=== PATIENT | male | born 1935 | race Two or more races ===

== ENCOUNTER 2018-05-30 16:05 | Inpatient (IN) | payer MEDICARE, OTHER ==
[~2018-05-30] VITALS: Ht 157.5 cm; Wt 74.8 kg
[2018-05-30] MEDS ORDERED: DONE10TA44 PO (21:35)
[2018-05-30] MEDS ORDERED: PANT40TA4 PO (21:35)
[2018-05-30] MEDS ORDERED: OLAN5TAB3 PO (21:35)
[2018-05-30] MEDS ORDERED: FOLI1TAB16 PO (21:35)
[2018-05-30] MEDS ORDERED: METF-441 PO (21:35)
[2018-05-30] MEDS ORDERED: HYDR-4076 PO (21:35)
[2018-05-30] MEDS ORDERED: LAMO100T PO (21:35)
[2018-05-30] MEDS ORDERED: FINA5TAB11 PO (21:35)
[2018-05-30] MEDS ORDERED: TAMS0.4C34 PO (21:35)
[2018-05-30] MEDS ORDERED: MEMA10TA PO (21:35)
--- NOTE | 2018-05-30 22:00 | NUR ---
Admission Note: At 2100 admitted a 83 years old male from [facility] via Ambulance via gurney with 3 EMT personnel. Admitting diagnosis is acute on chronic metabolic encephalopathy. Patient is under the care of Dr. Carlton and [facility] group. Only German speaking, understands a few words in Nepali, Engineering Operator needed for communication. His condition was fair, his past medical hx: CVA, DM, HTN, Seizure, brain aneurysm. Resident has allergies to Codeine, benazepril, and gabapentin. Patient is Full code. AAO x1-2 with episodes of confusion and forgetfulness. No SOB or acute distress noted. VS: T: 98.8, HR:87, RR:18, O2 Sat:96% Room air, BP:156/66. No complain of pain or discomfort at this time. Dr. Carlton notified of admission. All needs attended and anticipated. Brief assessment done. Safety measures maintained. Bed On low position, bed alarm and brake on. Call light and all frequently used items within reach. Will continue to monitor.
[2018-05-30] MEDS ORDERED: Z GUARD REMEDY PASTE 57 GM TUBE TOP PRN ×2 (22:30→23:00)
[2018-05-30] MEDS ORDERED: ONDANSETRON 4 MG/2 ML VIAL IV PRN (22:30)
[2018-05-30] MEDS ORDERED: ACETAMINOPHEN 325 MG TABLET PO PRN (22:30)
[2018-05-30] MEDS ORDERED: MAGNESIUM HYDROXIDE 30 ML LIQUID UDC PO PRN (22:30)
[2018-05-30 22:32] VITALS: BP 156/66
--- NOTE | 2018-05-31 05:28 | NUR ---
End of the shift note Patient was stable throughout the shift and had a good sleep last night. Medication reconciliation done, called Dr. Almazan, he stated that he will do the medication at the morning but the PRN meds on the system. MRSA Screening done. All assessments and FIM done. Safety measures maintained. Hourly rounding done. All needs anticipated promptly. Fall precaution maintained. Bed in low position, brake and alarm on, side rails up x2. Call light and personal belongings within reach. Continue to monitor and will endorse to the day shift nurse accordingly.
[2018-05-31 06:39] VITALS: BP 161/69
[2018-05-31 07:10] LABS: BASOPHILS # (AUTO) 0.1 K/uL (0.0-8.0); BASOPHILS % (AUTO) 0.6 % (0.0-2.0); EOSINOPHILS # (AUTO) 0.2 K/uL (0.0-0.7); EOSINOPHILS % (AUTO) 1.4 % (0.0-7.0); HEMOGLOBIN 14.4 g/dL (12.5-16.3); LYMPHOCYTES # (AUTO) 1.6 K/uL (20.0-40.0); LYMPHOCYTES % (AUTO) 12.8 % (20.5-51.5); MEAN CORPUSCULAR HEMOGLOBIN 31.2 uug (23.8-33.4); MEAN CORPUSCULAR HGB CONC 33 g/dL (32.5-36.3); MEAN CORPUSCULAR VOLUME 93.3 fL (73.0-96.2); MONOCYTES % (AUTO) 7.8 % (0.0-11.0); NEUTROPHILS # (AUTO) 9.6 K/uL (1.8-8.9); NEUTROPHILS % (AUTO) 77.4 % (38.5-71.5); PLATELET COUNT (AUTO) 280 K/uL (152-348); RED BLOOD CELL COUNT(AUTO) 4.61 MIL/uL (4.06-5.63); WHITE BLOOD COUNT (AUTO) 12.5 K/uL (3.6-10.2)
[2018-05-31 07:25] LABS: CARBON DIOXIDE 28 mmol/L (21-32); CHLORIDE 103 mmol/L (98-107); CHOLESTEROL 141 mg/dL (<200); CREATININE 1.2 mg/dL (0.6-1.3); GLUCOSE 223 mg/dL (74-106); HDL CHOLESTEROL 43 mg/dL (40-60); MAGNESIUM 1.8 mg/dL (1.8-2.4); PHOSPHOROUS 4.3 mg/dL (2.5-4.9); POTASSIUM 4.4 mmol/L (3.5-5.1); TRIGLYCERIDES 155 MG/DL (30-150); UREA NITROGEN, BLOOD 12 mg/dL (7-18)
[2018-05-31] MEDS ORDERED: OLANZAPINE 5 MG TABLET PO SCH (10:30)
[2018-05-31] MEDS ORDERED: DEXTROSE 50% 50 ML DISP.SYRIN IV PRN (10:30)
[2018-05-31] MEDS: FOLIC ACID 1 MG TABLET PO SCH (11:05)
[2018-05-31] MEDS: MEMANTINE HCL 10 MG TABLET PO SCH ×2 (11:06→16:57)
[2018-05-31] MEDS: hydrALAZINE HCL 25 MG TABLET PO SCH ×2 (11:22→17:00)
[2018-05-31] MEDS: TAMSULOSIN HCL 0.4 MG CAP.SR.24H PO SCH (11:54)
[2018-05-31] MEDS: BLOOD SUGAR DIAGNOSTIC 1 EACH STRIP VI SCH ×3 (12:12→21:07)
[2018-05-31] MEDS: INSULIN REGULAR, HUMAN 300 UNIT/3 ML VIAL SQ PRN ×2 (12:23→17:12)
[2018-05-31] MEDS ORDERED: DULO60CA45 PO (14:05)
[2018-05-31] MEDS ORDERED: RIVA3CAP5 PO (14:06)
[2018-05-31] MEDS: LORAZEPAM 0.5 MG TABLET PO PRN ×2 (14:08→22:28)
[2018-05-31 16:00] VITALS: BP 137/80
[2018-05-31] MEDS ORDERED: OLANZAPINE 2.5 MG TABLET PO PRN (17:45)
--- NOTE | 2018-05-31 19:20 | NUR ---
Awake when received. Family and sitter at bedside. Confused and disoriented, Syriac speaking only. Able to follow simple command at times. No agitation, restlessness and anxiety noted. safety measure and fall precaution maintained. Continue care as planned.
--- NOTE | 2018-05-31 19:41 | NUR ---
SBAR report received this morning, board updated. Pt assessed, no acute distress, SOB or pain noted. Pt AAOx1-2, frequently forgetful and confused. Spoke with all three of Pt's children, reporting hx of Alzheimer's and dementia. Pt continued throughout the shift to be impulsive and spontaneous. Pt son, Cam brought belongings including left ear hearing aid, belongings list updated. Pt escorted to walk the unity frequently. Pt seen by MD, new order for Ativan received, administered, with minimal effectiveness. Pt compliant with most routine medication administration and therapy evals as offered. Bed in locked and lowest position, side rails up, bed alarm on and fall precautions maintained. All comfort and safety needs attended to throughout this shift. VSS. Call light placed within reach. Will continue to monitor and endorse to oncoming shift coordinator nurse.
[2018-05-31 20:00] VITALS: BP 146/61
[2018-05-31] MEDS: DULOXETINE 60 MG CAPSULE.DR PO SCH (20:46)
[2018-05-31] MEDS: LAMOTRIGINE 100 MG TABLET PO SCH (20:47)
[2018-05-31] MEDS: OLANZAPINE 5 MG TABLET PO SCH (21:00)
[2018-05-31] MEDS: ZOLPIDEM 5 MG TABLET PO PRN (21:00)
--- NOTE | 2018-05-31 21:00 | NUR ---
Zyprexa 5mg po not given at this time. Was given in AM.
[2018-05-31] MEDS: INSULIN REGULAR, HUMAN 300 UNITS/3 ML VIAL SQ PRN (21:10)
[2018-05-31] MEDS: RIVASTIGMINE TARTRATE 3 MG CAPSULE PO SCH (21:15)
--- NOTE | 2018-05-31 22:31 | NUR ---
Agitated, restless, uncooperative, always trying to get out of bed, pulled down the curtain, Ativan 0.5 mg i tab given as needed and ordered. Will monitor. Sitter remain at bedside. Safety measure and fall precaution maintained.
--- NOTE | 2018-06-01 00:28 | NUR ---
Sleeping soundly at this time.
[2018-06-01] MEDS: BLOOD SUGAR DIAGNOSTIC 1 EACH STRIP VI SCH ×4 (06:29→20:57)
[2018-06-01] MEDS: PANTOPRAZOLE SODIUM 40 MG TABLET.DR PO SCH (06:31)
--- NOTE | 2018-06-01 06:48 | NUR ---
Shift End Report: Slept fairly. Confused, disoriented, uncooperative, always trying to get out of bed. Partial bed bath given after bladder incontinence. Skin remain intact. No complaint presented. No fall/injury. No s/s of hypo/hyperglycemia. All needs attended and met. Continue current rehab plan of care.
[2018-06-01 08:01] LABS: BASOPHILS # (AUTO) 0.1 K/uL (0.0-8.0); BASOPHILS % (AUTO) 0.5 % (0.0-2.0); EOSINOPHILS # (AUTO) 0.1 K/uL (0.0-0.7); EOSINOPHILS % (AUTO) 0.9 % (0.0-7.0); HEMOGLOBIN 12.8 g/dL (12.5-16.3); LYMPHOCYTES # (AUTO) 1.6 K/uL (20.0-40.0); LYMPHOCYTES % (AUTO) 14.5 % (20.5-51.5); MEAN CORPUSCULAR HEMOGLOBIN 30.7 uug (23.8-33.4); MEAN CORPUSCULAR HGB CONC 34 g/dL (32.5-36.3); MEAN CORPUSCULAR VOLUME 90.7 fL (73.0-96.2); MONOCYTES # (AUTO) 0.8 K/uL (2.0-10.0); MONOCYTES % (AUTO) 7.5 % (0.0-11.0); NEUTROPHILS # (AUTO) 8.4 K/uL (1.8-8.9); NEUTROPHILS % (AUTO) 76.6 % (38.5-71.5); PLATELET COUNT (AUTO) 273 K/uL (152-348); RED BLOOD CELL COUNT(AUTO) 4.19 MIL/uL (4.06-5.63)
[2018-06-01 08:15] LABS: CARBON DIOXIDE 26 mmol/L (21-32); CHLORIDE 105 mmol/L (98-107); CREATININE 1.1 mg/dL (0.6-1.3); GLUCOSE 194 mg/dL (74-106); POTASSIUM 3.9 mmol/L (3.5-5.1); UREA NITROGEN, BLOOD 20 mg/dL (7-18)
[2018-06-01 08:22] LABS: THYROID STIMULATING HORMONE 1.301 mIU/mL (0.358-3.740)
[2018-06-01] MEDS ORDERED: DONEPEZIL 10 MG TABLET PO SCH (09:00)
[2018-06-01] MEDS: hydrALAZINE HCL 25 MG TABLET PO SCH ×3 (09:00→18:55)
[2018-06-01] MEDS: INSULIN REGULAR, HUMAN 300 UNIT/3 ML VIAL SQ PRN ×2 (09:51→12:44)
[2018-06-01] MEDS ORDERED: IV NS 1000 ML 1,000 ML IV ONE (11:30)
[2018-06-01] MEDS: RIVASTIGMINE TARTRATE 3 MG CAPSULE PO SCH ×2 (12:26→20:57)
[2018-06-01] MEDS: MEMANTINE HCL 10 MG TABLET PO SCH ×2 (12:27→18:05)
[2018-06-01] MEDS: TAMSULOSIN HCL 0.4 MG CAP.SR.24H PO SCH (12:27)
[2018-06-01] MEDS: FOLIC ACID 1 MG TABLET PO SCH (12:27)
[2018-06-01] MEDS: FINASTERIDE 5 MG TABLET PO SCH (12:27)
[2018-06-01 14:57] VITALS: BP 135/66
[2018-06-01 16:04] LABS: *BILIRUBIN,URIN NEGATIVE (NEGATIVE); *BLOOD, URINE NEGATIVE (NEGATIVE); *CLARITY,URINE CLEAR (CLEAR); *COLOR,URINE YELLOW (YELLOW); *KETONES,URINE 1+ (NEGATIVE); *PROTEIN,URINE 1+ (NEGATIVE); *UROBILINOGEN,URINE 0.2 E.U./dl (NORMAL); LEUKOCYTE ESTERASE ,URINE NEGATIVE (NEGATIVE); NITRITE, URINE NEGATIVE (NEGATIVE); UGLUCOSE 1+ (NEGATIVE)
[2018-06-01 17:00] LABS: MUCUS,URINE MODERATE /LPF (0-FEW); RBC,URINE 0-3 /HPF (0-3); SQUAMOUS EPITHELIAL CELL,UR FEW /HPF (NONE SEEN); WBC,URINE 0-3 /HPF (0-3)
[2018-06-01 19:31] VITALS: BP 138/59
--- NOTE | 2018-06-01 19:41 | NUR ---
SBAR report received, board updated, Pt assessed, endorsed from night time babysitter of minimal sleep last night and medications to assist evident. Pt compliant with most routinely scheduled medications and therapies as offered. Family visited in the afternoon, pt assisted to eat lunch in wheelchair with daughter and . Urine sample able to be collected and sent to lab. Hydralazine held, for bp of 99/55, administered upon re-evaluation of BP 151/70 following initiation of IV fluids. 20 ray IV inserted to left wrist per MD order for hydration of NA 0.9% 75ml/hr. Bed in locked and lowest position with side rails upx2. 1:1 sitter remained at bedside for safety. All comfort and safety needs attended to promptly this shift. Call light within reach. Will continue to monitor and endorse to oncoming night time babysitter.
[2018-06-01] MEDS: DULOXETINE 60 MG CAPSULE.DR PO SCH (20:57)
[2018-06-01] MEDS: LAMOTRIGINE 100 MG TABLET PO SCH (20:57)
[2018-06-01] MEDS: OLANZAPINE 5 MG TABLET PO SCH (20:57)
--- NOTE | 2018-06-02 05:38 | NUR ---
Pt slept comfortably t/o the night. Aroused easily when alerted by name. Somali speaking. No acute distress noted. No c/o pain or discomfort, no facial cues for pain noted. 1:1 sitter at bedside. IV site on left forearm gauge 20 infusing IV NS 75 mL/hr for hydration. Safety measures maintained. Will continue to monitor.
[2018-06-02 06:38] VITALS: BP 111/63
[2018-06-02] MEDS: BLOOD SUGAR DIAGNOSTIC 1 EACH STRIP VI SCH ×4 (06:47→21:27)
[2018-06-02 07:29] LABS: BASOPHILS # (AUTO) 0.1 K/uL (0.0-8.0); BASOPHILS % (AUTO) 0.6 % (0.0-2.0); EOSINOPHILS # (AUTO) 0.5 K/uL (0.0-0.7); EOSINOPHILS % (AUTO) 4.8 % (0.0-7.0); HEMATOCRIT 39.1 % (36.7-47.1); HEMOGLOBIN 13.2 g/dL (12.5-16.3); LYMPHOCYTES # (AUTO) 2.2 K/uL (20.0-40.0); LYMPHOCYTES % (AUTO) 23.8 % (20.5-51.5); MEAN CORPUSCULAR HEMOGLOBIN 31.2 uug (23.8-33.4); MEAN CORPUSCULAR HGB CONC 34 g/dL (32.5-36.3); MEAN CORPUSCULAR VOLUME 92.2 fL (73.0-96.2); MONOCYTES # (AUTO) 0.9 K/uL (2.0-10.0); MONOCYTES % (AUTO) 9.5 % (0.0-11.0); NEUTROPHILS # (AUTO) 5.7 K/uL (1.8-8.9); NEUTROPHILS % (AUTO) 61.3 % (38.5-71.5); PLATELET COUNT (AUTO) 259 K/uL (152-348); RED BLOOD CELL COUNT(AUTO) 4.24 MIL/uL (4.06-5.63); WHITE BLOOD COUNT (AUTO) 9.3 K/uL (3.6-10.2)
[2018-06-02] MEDS: hydrALAZINE HCL 25 MG TABLET PO SCH ×2 (08:49→16:26)
[2018-06-02] MEDS: TAMSULOSIN HCL 0.4 MG CAP.SR.24H PO SCH (08:49)
[2018-06-02] MEDS: MEMANTINE HCL 10 MG TABLET PO SCH ×2 (08:50→16:26)
[2018-06-02] MEDS: FOLIC ACID 1 MG TABLET PO SCH (08:50)
[2018-06-02] MEDS: FINASTERIDE 5 MG TABLET PO SCH (08:50)
[2018-06-02] MEDS: RIVASTIGMINE TARTRATE 3 MG CAPSULE PO SCH ×2 (08:50→21:29)
[2018-06-02] MEDS: INSULIN REGULAR, HUMAN 300 UNIT/3 ML VIAL SQ PRN ×2 (08:56→11:51)
[2018-06-02 09:30] VITALS: BP 145/62
--- NOTE | 2018-06-02 12:50 | NUR ---
Patient continue therapy for ambulation and ADL activity. tolerated well. Continue monitoring blood sugar with sliding scale protocol. no signs of hypo/hyperglycemia. no complaint of pain/discomfort. will continue monitor
--- NOTE | 2018-06-02 13:22 | NUR ---
INTERDISCIPLINARY TEAM CONFERENCE
[2018-06-02 16:00] VITALS: BP 129/61
[2018-06-02 21:06] VITALS: BP 129/57
[2018-06-02] MEDS: DULOXETINE 60 MG CAPSULE.DR PO SCH (21:29)
[2018-06-02] MEDS: OLANZAPINE 5 MG TABLET PO SCH (21:29)
[2018-06-02] MEDS: LAMOTRIGINE 100 MG TABLET PO SCH (21:29)
[2018-06-02] MEDS: INSULIN REGULAR, HUMAN 300 UNITS/3 ML VIAL SQ PRN (21:32)
--- NOTE | 2018-06-02 21:54 | NUR ---
Received pt sleeping comfortably in bed. Aroused easily when alerted by name. AAO x1. Thai speaking. No acute distress noted. No c/o pain or discomfort, no facial cues noted for pain. All due meds and insulin coverage given as ordered. Pt has 2:1 sitter for safety. Safety measures maintained. Call light and personal belongings within reach. Will continue to monitor.
[2018-06-03 05:37] VITALS: BP 133/62
[2018-06-03] MEDS: PANTOPRAZOLE SODIUM 40 MG TABLET.DR PO SCH (06:35)
[2018-06-03] MEDS: BLOOD SUGAR DIAGNOSTIC 1 EACH STRIP VI SCH ×4 (06:43→20:35)
[2018-06-03] MEDS: LORAZEPAM 0.5 MG TABLET PO PRN (11:39)
[2018-06-03] MEDS: FOLIC ACID 1 MG TABLET PO SCH (11:39)
[2018-06-03] MEDS: hydrALAZINE HCL 25 MG TABLET PO SCH ×2 (11:39→16:53)
[2018-06-03] MEDS: TAMSULOSIN HCL 0.4 MG CAP.SR.24H PO SCH (11:40)
[2018-06-03] MEDS: FINASTERIDE 5 MG TABLET PO SCH (11:40)
[2018-06-03] MEDS: MEMANTINE HCL 10 MG TABLET PO SCH ×2 (11:42→16:52)
[2018-06-03] MEDS: RIVASTIGMINE TARTRATE 3 MG CAPSULE PO SCH ×2 (11:43→20:22)
[2018-06-03] MEDS: INSULIN REGULAR, HUMAN 300 UNIT/3 ML VIAL SQ PRN (12:09)
[2018-06-03 15:31] VITALS: BP 171/77
[2018-06-03 15:48] VITALS: BP 159/62
[2018-06-03] MEDS: DULOXETINE 60 MG CAPSULE.DR PO SCH (20:17)
[2018-06-03] MEDS: LAMOTRIGINE 100 MG TABLET PO SCH (20:19)
[2018-06-03] MEDS: OLANZAPINE 5 MG TABLET PO SCH (20:29)
[2018-06-03] MEDS: INSULIN REGULAR, HUMAN 300 UNITS/3 ML VIAL SQ PRN (20:36)
--- NOTE | 2018-06-03 20:45 | NUR ---
NSG:Received patient laying in bed,awake a/o x2, speaks Slovak. Family and sitter at bedside. patient is Confused and disoriented, Able to follow simple command at times. no c/o pain or discomfort at this time.No agitation, restlessness and anxiety noted.due medications given. safety measure and fall precaution maintained. Continue care as planned.
[2018-06-03 21:19] VITALS: BP 140/47
[2018-06-04 05:30] VITALS: BP 125/54
--- NOTE | 2018-06-04 05:59 | NUR ---
NSG: Pt slept comfortably through the night. A/O x1 to name only. Lao speaking. No acute distress noted. No c/o pain or discomfort, no facial cues for pain noted. sitter at bedside. IV site on left forearm gauge 20 patent. Safety measures maintained.call light w/in reach. Will continue to monitor.
[2018-06-04] MEDS: BLOOD SUGAR DIAGNOSTIC 1 EACH STRIP VI SCH ×4 (06:34→21:14)
[2018-06-04 07:30] VITALS: BP 121/76
[2018-06-04] MEDS: TAMSULOSIN HCL 0.4 MG CAP.SR.24H PO SCH (08:46)
[2018-06-04] MEDS: FINASTERIDE 5 MG TABLET PO SCH (08:46)
[2018-06-04] MEDS: RIVASTIGMINE TARTRATE 3 MG CAPSULE PO SCH ×2 (08:46→21:08)
[2018-06-04] MEDS: hydrALAZINE HCL 25 MG TABLET PO SCH ×2 (08:46→16:38)
[2018-06-04] MEDS: MEMANTINE HCL 10 MG TABLET PO SCH ×2 (08:47→16:37)
[2018-06-04] MEDS: FOLIC ACID 1 MG TABLET PO SCH (08:47)
--- NOTE | 2018-06-04 10:01 | NUR ---
Patient received in bed. Response to touch and auditory stimulation. AAO x4. Able to make needs known. No sign of acute distress or SOB was noted. On room air. No Complain of pain at this time. Patient assessed. Safety measures maintained. All due medications given- tolerated well. Bed in low position, brake and alarm on, side rails up x2. Call light and personal belongings within reach. Will continue to monitor. Addendum: 06/04/18 at 1247 by GRAY IRVING RN Alert and oriented x 1. Filipino speaking.
[2018-06-04] MEDS: INSULIN REGULAR, HUMAN 300 UNIT/3 ML VIAL SQ PRN ×2 (11:34→16:35)
[2018-06-04 15:40] VITALS: BP 120/66
--- NOTE | 2018-06-04 17:42 | NUR ---
NSG: IV access D/C from right hand. Patient tolerated procedure well. No pain noted. Will continue to monitor.
--- NOTE | 2018-06-04 18:46 | NUR ---
End of Shift Note: Patient asleep during most of shift. PT performed in morning. Family visited at dinner time. Patient stated to be, "anxious to go home". Family translated interaction. Insulin coverage given before lunch and breakfast. All other scheduled medications given and taken by pt. Safety measures and precautions in place. No new skin condition noted. All pt. needs attended and met. Asking about discharge date. Call light and all frequently used items within pt. reach. Will endorse to oncoming shift.
[2018-06-04 20:38] VITALS: BP 150/64
[2018-06-04] MEDS: DULOXETINE 60 MG CAPSULE.DR PO SCH (21:08)
[2018-06-04] MEDS: OLANZAPINE 5 MG TABLET PO SCH (21:08)
[2018-06-04] MEDS: LAMOTRIGINE 100 MG TABLET PO SCH (21:08)
--- NOTE | 2018-06-04 23:25 | NUR ---
Received pt in bed, appearing to be asleep but easily arousable to verbal stimuli and light touch. AAO x 2. Verbally responsive and able to communicate basic needs. Denies pain or discomfort. All due medications given per MD order, tolerated well. Sugar 120, no coverage given per sliding scale. 1:1 sitter at bedside for safety. All safety measures and fall precautions maintained. Call light and all personal belongings within reach. Will continue to monitor.
[2018-06-05 04:55] VITALS: BP 146/78
[2018-06-05] MEDS: PANTOPRAZOLE SODIUM 40 MG TABLET.DR PO SCH (06:51)
[2018-06-05] MEDS: BLOOD SUGAR DIAGNOSTIC 1 EACH STRIP VI SCH ×4 (06:52→20:42)
[2018-06-05] MEDS: TAMSULOSIN HCL 0.4 MG CAP.SR.24H PO SCH (08:18)
[2018-06-05] MEDS: FINASTERIDE 5 MG TABLET PO SCH (08:18)
[2018-06-05] MEDS: MEMANTINE HCL 10 MG TABLET PO SCH ×2 (08:18→17:09)
[2018-06-05] MEDS: hydrALAZINE HCL 25 MG TABLET PO SCH ×2 (08:18→17:10)
[2018-06-05] MEDS: FOLIC ACID 1 MG TABLET PO SCH (08:18)
[2018-06-05] MEDS: RIVASTIGMINE TARTRATE 3 MG CAPSULE PO SCH ×2 (08:19→20:38)
[2018-06-05] MEDS: INSULIN REGULAR, HUMAN 300 UNIT/3 ML VIAL SQ PRN ×3 (08:24→17:08)
[2018-06-05 08:34] VITALS: BP 145/62
--- NOTE | 2018-06-05 09:30 | NUR ---
Received pt. lying in bed with eyes closed. Pt. A/OX1 to self only, responds to verbal and tactile stimuli. No s/sx of hypo/hyperglycemia, last BS: 169 covered with Humalin R of 3 Units. Denies pain or discomfort. No s/sx of increase work of breathing. All due medications administered as ordered and tolerated well. Skin remain intact with scattered skin discoloration 2/2 normal aging process. On 1:1 sitter for safety and fall precautionary as pt. has tendency to get out of bed without assistance. Pt. hard of hearing applied hearing aid accordingly. Call light and all frequently used items within pt. reach. Will continue to monitor throughout this shift.
[2018-06-05 16:00] VITALS: BP 122/67
--- NOTE | 2018-06-05 18:33 | NUR ---
EOS NOTE: No significant change during this shift. All scheduled medications given and tolerated well. No new skin condition noted. 1630 BS: 96, no coverage. No s/sx of hypo/hyperglycemia. No seizure activity noted. Family visited pt. today. All pt. needs attended and met. Safety measure and precaution in placed, on 1:1 sitter . Call light and all frequently used items within pt. reach. Will endorse to oncoming shift accordingly.
[2018-06-05 19:31] VITALS: BP 131/54
[2018-06-05] MEDS: OLANZAPINE 5 MG TABLET PO SCH (20:37)
[2018-06-05] MEDS: DULOXETINE 60 MG CAPSULE.DR PO SCH (20:37)
[2018-06-05] MEDS: LAMOTRIGINE 100 MG TABLET PO SCH (20:38)
[2018-06-05] MEDS: INSULIN REGULAR, HUMAN 300 UNITS/3 ML VIAL SQ PRN (20:45)
[2018-06-06 04:45] VITALS: BP 139/71
[2018-06-06] MEDS: BLOOD SUGAR DIAGNOSTIC 1 EACH STRIP VI SCH ×4 (07:00→21:00)
[2018-06-06 07:30] VITALS: BP 142/77
[2018-06-06] MEDS: FOLIC ACID 1 MG TABLET PO SCH (09:09)
[2018-06-06] MEDS: hydrALAZINE HCL 25 MG TABLET PO SCH ×2 (09:10→17:09)
[2018-06-06] MEDS: TAMSULOSIN HCL 0.4 MG CAP.SR.24H PO SCH (09:10)
[2018-06-06] MEDS: MEMANTINE HCL 10 MG TABLET PO SCH ×2 (09:10→17:09)
[2018-06-06] MEDS: FINASTERIDE 5 MG TABLET PO SCH (09:10)
[2018-06-06] MEDS: RIVASTIGMINE TARTRATE 3 MG CAPSULE PO SCH ×2 (09:11→21:00)
[2018-06-06] MEDS: INSULIN REGULAR, HUMAN 300 UNIT/3 ML VIAL SQ PRN ×3 (09:15→17:17)
--- NOTE | 2018-06-06 13:46 | NUR ---
Notified Astrid Paige STRATEGIC ANALYST regarding blood sugar of 346 and current diet order, per STRATEGIC ANALYST change diet to soft consistent carb 60gm.
[2018-06-06 15:48] VITALS: BP 128/69
[2018-06-06 16:00] VITALS: BP 129/65
[2018-06-06 20:20] VITALS: BP 138/63
[2018-06-06] MEDS: LAMOTRIGINE 100 MG TABLET PO SCH (21:00)
[2018-06-06] MEDS: DULOXETINE 60 MG CAPSULE.DR PO SCH (21:00)
[2018-06-06] MEDS: OLANZAPINE 5 MG TABLET PO SCH (21:00)
[2018-06-07 05:33] VITALS: BP 137/71
--- NOTE | 2018-06-07 06:00 | NUR ---
AGREED TO TAKE THIS MORNINGS MEDS, WITHOUT ANY FUSS, BS 140...ANXIOUS TO GO HOME.
[2018-06-07] MEDS: PANTOPRAZOLE SODIUM 40 MG TABLET.DR PO SCH (06:51)
[2018-06-07] MEDS: BLOOD SUGAR DIAGNOSTIC 1 EACH STRIP VI SCH ×4 (07:04→20:52)
[2018-06-07 08:10] VITALS: BP 137/72
[2018-06-07] MEDS: FOLIC ACID 1 MG TABLET PO SCH (08:27)
[2018-06-07] MEDS: MEMANTINE HCL 10 MG TABLET PO SCH ×2 (08:27→16:22)
[2018-06-07] MEDS: FINASTERIDE 5 MG TABLET PO SCH (08:27)
[2018-06-07] MEDS: RIVASTIGMINE TARTRATE 3 MG CAPSULE PO SCH ×2 (08:28→20:51)
[2018-06-07] MEDS: hydrALAZINE HCL 25 MG TABLET PO SCH ×2 (08:28→16:23)
[2018-06-07] MEDS: TAMSULOSIN HCL 0.4 MG CAP.SR.24H PO SCH (08:28)
[2018-06-07] MEDS: INSULIN REGULAR, HUMAN 300 UNIT/3 ML VIAL SQ PRN ×3 (08:30→16:21)
--- NOTE | 2018-06-07 11:09 | NUR ---
Received pt. lying in bed comfortable. On 1:1 sitter for safety and monitoring. Pt. A/OX1-2 responds to verbal and tactile stimuli. No s/sx of hypo/hyperglycemia, last BS: 140 covered with Humalin R of 2 Units. Denies pain or discomfort. No s/sx of increase work of breathing. All due medications administered as ordered and tolerated well. No new skin condition. Pt. requesting to discharge early, provided pt. teaching and referred to case management assistant accordingly. Call light and all frequently used items within pt. reach. Will continue to monitor throughout this shift.
[2018-06-07 16:38] VITALS: BP 133/60
--- NOTE | 2018-06-07 18:43 | NUR ---
EOS NOTE: No significant change during this shift. All scheduled medications given and tolerated well. No new skin condition noted. 1630 BS: 121, no coverage. No s/sx of hypo/hyperglycemia. No seizure activity noted. All pt. needs attended and met. On 1:1 sitter for safety. Call light and all frequently used items within pt. reach. Will endorse to oncoming shift accordingly.
[2018-06-07 20:09] VITALS: BP 133/64
[2018-06-07] MEDS: DULOXETINE 60 MG CAPSULE.DR PO SCH (20:51)
[2018-06-07] MEDS: OLANZAPINE 5 MG TABLET PO SCH (20:51)
[2018-06-07] MEDS: LAMOTRIGINE 100 MG TABLET PO SCH (20:51)
--- NOTE | 2018-06-07 23:17 | NUR ---
Received pt in bed, appearing to be asleep but easily arousable to verbal stimuli and light touch. No acute distress noted. Verbally responsive and able to communicate needs. Sugar noted to be 117, no coverage provided per sliding scale as ordered by MD. All due medications given, tolerated well. Assisted to the bathroom x 1 minimal assistance. All safety measures and fall precautions maintained. Call light and all personal belongings within reach. 1:1 sitter at bedside for safety. Will continue to monitor.
[2018-06-08 05:01] VITALS: BP 125/62
[2018-06-08] MEDS: BLOOD SUGAR DIAGNOSTIC 1 EACH STRIP VI SCH ×4 (06:34→20:52)
[2018-06-08 07:30] VITALS: BP_SYST 144; BP_SYST 171; BP_DIAS 64; BP_DIAS 69
[2018-06-08] MEDS: MEMANTINE HCL 10 MG TABLET PO SCH ×2 (08:41→17:21)
[2018-06-08] MEDS: FOLIC ACID 1 MG TABLET PO SCH (08:42)
[2018-06-08] MEDS: RIVASTIGMINE TARTRATE 3 MG CAPSULE PO SCH ×2 (08:42→20:46)
[2018-06-08] MEDS: TAMSULOSIN HCL 0.4 MG CAP.SR.24H PO SCH (08:43)
[2018-06-08] MEDS: hydrALAZINE HCL 25 MG TABLET PO SCH ×2 (08:43→17:22)
[2018-06-08] MEDS: FINASTERIDE 5 MG TABLET PO SCH (08:43)
[2018-06-08] MEDS: INSULIN REGULAR, HUMAN 300 UNIT/3 ML VIAL SQ PRN ×3 (08:50→16:48)
--- NOTE | 2018-06-08 09:13 | NUR ---
Patient received in bed, resting. Alert and oriented x 1/2. Czech speaking. Responds to verbal and tactile stimuli. No signs of hypo/hyperglycemia. Last BS 169 with 3 units of Humalin coverage given. Denies pain of discomfort at this time. All due medications given-tolerated well. No new skin conditions at this time. Patient currently with physical therapy. Will continue to monitor.
[2018-06-08 16:38] VITALS: BP 140/62
--- NOTE | 2018-06-08 18:56 | NUR ---
End of shift note: No significant changes during shift. 1130 BS: 319. 12 units of insulin given. 1630 BS: 154. 2 units given. No s/sx of hypo/hyperglycemia noted. No seizure activity. All due medications given-tolerated will. No PRNs given at this time/ On 1:1 sitter for safety. Call light and all frequently used items with reach. Will endorse to oncoming shift accordingly.
[2018-06-08 20:10] VITALS: BP 137/52
[2018-06-08] MEDS: DULOXETINE 60 MG CAPSULE.DR PO SCH (20:46)
[2018-06-08] MEDS: OLANZAPINE 5 MG TABLET PO SCH (20:47)
[2018-06-08] MEDS: LAMOTRIGINE 100 MG TABLET PO SCH (20:49)
[2018-06-08] MEDS: INSULIN REGULAR, HUMAN 300 UNITS/3 ML VIAL SQ PRN (20:54)
[2018-06-09 04:00] VITALS: BP 142/71
--- NOTE | 2018-06-09 04:55 | NUR ---
slept well throughout the night. no acute distress noted incontinent of bowel and bladder. VSS. @ 0500 patient tried to get up and wants to go home and see his saying she is sick, explained to patient and reoriented him that he is here in the hospital. Will monitor patient. Patient confused but no signs of agitation or combativeness. 1:1 sitter at bedside. safety precautions maintained.
[2018-06-09] MEDS: PANTOPRAZOLE SODIUM 40 MG TABLET.DR PO SCH (06:14)
[2018-06-09] MEDS: BLOOD SUGAR DIAGNOSTIC 1 EACH STRIP VI SCH ×4 (06:32→20:56)
--- NOTE | 2018-06-09 08:00 | NUR ---
Up with physical therapy. Awake, alert x1. Re-oriented as necessary. Patient may be confused and impulsive at times. With 1:1 sitter. Not in any form of distress. No dizziness, SOB or chest pains noted.
[2018-06-09] MEDS: FOLIC ACID 1 MG TABLET PO SCH (08:41)
[2018-06-09] MEDS: FINASTERIDE 5 MG TABLET PO SCH (08:41)
[2018-06-09] MEDS: TAMSULOSIN HCL 0.4 MG CAP.SR.24H PO SCH (08:41)
[2018-06-09] MEDS: hydrALAZINE HCL 25 MG TABLET PO SCH ×2 (08:41→17:17)
[2018-06-09] MEDS: MEMANTINE HCL 10 MG TABLET PO SCH ×2 (08:42→17:17)
[2018-06-09] MEDS: RIVASTIGMINE TARTRATE 3 MG CAPSULE PO SCH ×2 (08:42→20:51)
[2018-06-09] MEDS: INSULIN REGULAR, HUMAN 300 UNIT/3 ML VIAL SQ PRN ×3 (08:44→16:54)
[2018-06-09 09:38] VITALS: BP 166/69
--- NOTE | 2018-06-09 13:23 | NUR ---
INTERDISCIPLINARY TEAM CONFERENCE
[2018-06-09 16:00] VITALS: BP 165/72
--- NOTE | 2018-06-09 19:15 | NUR ---
Awake during initial rounds, Trying to get out of bed. Sitter at bedside. Not in distress, quite anxious, uncooperetaive with care. Safety measure and fall precaution maintained. Continue care as planned.
[2018-06-09 19:27] VITALS: BP 160/57
[2018-06-09] MEDS: DULOXETINE 60 MG CAPSULE.DR PO SCH (20:51)
[2018-06-09] MEDS: LAMOTRIGINE 100 MG TABLET PO SCH (20:51)
[2018-06-09] MEDS: OLANZAPINE 5 MG TABLET PO SCH (20:51)
[2018-06-09] MEDS: INSULIN REGULAR, HUMAN 300 UNITS/3 ML VIAL SQ PRN (21:00)
[2018-06-10] MEDS: ZOLPIDEM 5 MG TABLET PO PRN (01:37)
[2018-06-10] MEDS: BLOOD SUGAR DIAGNOSTIC 1 EACH STRIP VI SCH ×4 (06:55→21:00)
--- NOTE | 2018-06-10 07:27 | NUR ---
Shift End Report: Kind of restless, uncooperative the rest of the night. Sleeping meds effective. Slept soundly after midnight. No complaint presented. No fall/injury. No s/s of hypo/hyperglycemia. All needs attended and met. Remain on 1:1. No significant event reported all night. Continue current rehab plan of care.
[2018-06-10 08:29] VITALS: BP 154/78
[2018-06-10] MEDS: RIVASTIGMINE TARTRATE 3 MG CAPSULE PO SCH ×2 (09:49→20:55)
[2018-06-10] MEDS: FOLIC ACID 1 MG TABLET PO SCH (09:53)
[2018-06-10] MEDS: TAMSULOSIN HCL 0.4 MG CAP.SR.24H PO SCH (09:54)
[2018-06-10] MEDS: hydrALAZINE HCL 25 MG TABLET PO SCH ×2 (09:55→17:08)
[2018-06-10] MEDS: FINASTERIDE 5 MG TABLET PO SCH (09:55)
[2018-06-10] MEDS: MEMANTINE HCL 10 MG TABLET PO SCH ×2 (12:09→17:08)
[2018-06-10] MEDS: INSULIN REGULAR, HUMAN 300 UNIT/3 ML VIAL SQ PRN ×2 (12:24→17:06)
[2018-06-10 16:22] VITALS: BP 138/68
[2018-06-10 20:10] VITALS: BP 130/58
[2018-06-10] MEDS: DULOXETINE 60 MG CAPSULE.DR PO SCH (20:55)
[2018-06-10] MEDS: LAMOTRIGINE 100 MG TABLET PO SCH (20:55)
[2018-06-10] MEDS: OLANZAPINE 5 MG TABLET PO SCH (20:57)
[2018-06-10] MEDS: INSULIN REGULAR, HUMAN 300 UNITS/3 ML VIAL SQ PRN (21:05)
--- NOTE | 2018-06-10 22:24 | NUR ---
Received pt in bed, AAO x 3 with family member at bedside. No acute distress noted. Verbally responsive, able to communicate needs. All due medications given as ordered, tolerated well. Sugar checked, noted to be 217 - coverage provided per sliding scale as ordered by MD. 1:1 sitter at bedside for safety. All safety measures and fall precautions maintained. Call light and all personal belongings within reach. Will continue to monitor.
[2018-06-11 05:49] VITALS: BP 130/55
[2018-06-11] MEDS: PANTOPRAZOLE SODIUM 40 MG TABLET.DR PO SCH (06:34)
[2018-06-11] MEDS: BLOOD SUGAR DIAGNOSTIC 1 EACH STRIP VI SCH ×4 (06:34→20:42)
[2018-06-11 08:13] VITALS: BP 129/79
[2018-06-11] MEDS: hydrALAZINE HCL 25 MG TABLET PO SCH ×2 (08:28→17:18)
[2018-06-11] MEDS: FOLIC ACID 1 MG TABLET PO SCH (08:28)
[2018-06-11] MEDS: FINASTERIDE 5 MG TABLET PO SCH (08:28)
[2018-06-11] MEDS: TAMSULOSIN HCL 0.4 MG CAP.SR.24H PO SCH (08:28)
[2018-06-11] MEDS: RIVASTIGMINE TARTRATE 3 MG CAPSULE PO SCH ×2 (08:29→20:39)
[2018-06-11] MEDS: MEMANTINE HCL 10 MG TABLET PO SCH ×2 (08:29→17:18)
[2018-06-11] MEDS: INSULIN REGULAR, HUMAN 300 UNIT/3 ML VIAL SQ PRN ×2 (08:29→12:13)
--- NOTE | 2018-06-11 09:50 | NUR ---
Received pt. lying in bed comfortable. On 1:1 sitter for safety and monitoring. Pt. A/OX1-2 responds to verbal and tactile stimuli. No s/sx of hypo/hyperglycemia, last BS: @ 0630 129 with no coverage given. Denies pain or discomfort. No s/sx of increase work of breathing. All due medications administered as ordered and tolerated well. No new skin condition. Call light and all frequently used items within pt. reach. Will continue to monitor throughout this shift.
--- NOTE | 2018-06-11 11:10 | NUR ---
Assumed care at this time, report received from Дмитрий GARDUNO. Patient remains alert, verbally responsive, not in any form of acute distress. He denies any pain or discomfort at this time. Assisted with his needs. No new skin condition noted at this time. Call light and frequently used items placed within reach.
[2018-06-11 16:46] VITALS: BP 126/63
--- NOTE | 2018-06-11 18:56 | NUR ---
1658 Blood sugar 55, patient remains alert, verbally responsive, not in any form of acute distress. Gave patient orange juice and had his dinner. 1716 Blood sugar 82, patient denies any discomfort. 1736 Rechecked blood sugar 140. Will continue to monitor and will endorse accordingly.
--- NOTE | 2018-06-11 19:57 | NUR ---
Patient received in bed resting comfortably. Responds to Verbal and tactile stimuli. Alert and oriented x 1-2. Yakut speaking. 1:1 sitter for confusion. No signs and symptoms of hypo/hyperglycemia at this time. Charu pain or discomfort at this time. Call light and frequently used items within reach. Will continue to monitor.
[2018-06-11 20:00] VITALS: BP 126/65
[2018-06-11] MEDS: LAMOTRIGINE 100 MG TABLET PO SCH (20:38)
[2018-06-11] MEDS: OLANZAPINE 5 MG TABLET PO SCH (20:39)
[2018-06-11] MEDS: DULOXETINE 60 MG CAPSULE.DR PO SCH (20:39)
[2018-06-11] MEDS: INSULIN REGULAR, HUMAN 300 UNITS/3 ML VIAL SQ PRN (20:43)
[2018-06-12 05:30] VITALS: BP 113/69
[2018-06-12] MEDS: BLOOD SUGAR DIAGNOSTIC 1 EACH STRIP VI SCH ×2 (06:31→11:15)
--- NOTE | 2018-06-12 06:33 | NUR ---
End of Shift Report: Patient slept comfortably throughout the night. A/O x 1. Sammarinese speaking. 1:1 sitter present throughout the night. No acute distress of pain noted. Patient ready and anticipating discharge today. Safety measures in place. Call light and most commonly used items at bedside. Will endorse to AM shift accordingly.
[2018-06-12 08:00] VITALS: BP 141/69
[2018-06-12] MEDS: FOLIC ACID 1 MG TABLET PO SCH (08:06)
[2018-06-12] MEDS: hydrALAZINE HCL 25 MG TABLET PO SCH (08:06)
[2018-06-12] MEDS: TAMSULOSIN HCL 0.4 MG CAP.SR.24H PO SCH (08:06)
[2018-06-12] MEDS: MEMANTINE HCL 10 MG TABLET PO SCH (08:06)
[2018-06-12] MEDS: FINASTERIDE 5 MG TABLET PO SCH (08:06)
[2018-06-12] MEDS: RIVASTIGMINE TARTRATE 3 MG CAPSULE PO SCH (08:07)
[2018-06-12] MEDS: INSULIN REGULAR, HUMAN 300 UNIT/3 ML VIAL SQ PRN ×2 (08:19→11:23)
--- NOTE | 2018-06-12 09:11 | NUR ---
Received pt. sitting on W/C. On 1:1 sitter for safety and monitoring. Pt. A/OX1-2 responds to verbal and tactile stimuli. No s/sx of hypo/hyperglycemia, last BS: @ 0630 262 with coverage given. Denies pain or discomfort. No s/sx of increase work of breathing. All due medications administered as ordered and tolerated well. No new skin condition. Pt. on schedule for discharge home today at around 1300. Call light and all frequently used items within pt. reach. Will continue to monitor throughout this shift.
[2018-06-12 13:30] VITALS: BP 145/64
--- NOTE | 2018-06-12 14:22 | NUR ---
Obtained discharge order from Dr. Carlton @ 4430, amenable. Orders noted and carried out. Routine round with pt; pt. remain cooperative, A/OX1-2. Lungs sounds clear to auscultation bilaterally, no respiratory distress. Heart with regular rate and rhythm, no murmur, rub or gallop. Abdomen soft, non-tender, bowel sounds present in all 4 quadrants. Conjunctivae clear, PERRLA. RX faxed to [facility] per R/P request. 1130 Resident served with lunch as ordered and tolerated well. BS: 262 covered with insulin as ordered, no s/sx of hypo/hyperglycemia. 1400 Resident DTR (Cherelle) arrived on-site. All belongings are prepared. Personal belongings checked and all accountable for. Instructed resident and R/P to follow up with PCP. DTR to make arrangement for f/u visit with PCP (Dr. Baker). Pt. teaching provided which include but not limited to meds administration, risk of fall, skin mgt, and DM mgt. No further questions from the resident and R/P about the discharge instructions at this time and verbalized clear understanding. Discharge documents signed by responsible constitution party. RX and discharge packet given to DTR. 3357 Assisted resident safely via W/C to pvt vehicle. Res. left the facility and d/c to home with home health to provide PT/OT/ST/RN. ASHBY made aware of resident discharge. Addendum: 06/12/18 at 1435 by NASRIN FOFANA RN Discharge Note
== END 2018-06-12 14:15 | disposition home health service (06) | DRG 70 ==
PROVIDERS: ADMIT Physical Medicine & Rehabilitation Pain Medicine; ATTEND Physical Medicine & Rehabilitation Pain Medicine
DX: G93.41 Metabolic encephalopathy (principal); G93.6 Cerebral edema; G40.919 Epilepsy, unspecified, intractable, without status epilepticus; E11.65 Type 2 diabetes mellitus with hyperglycemia; I69.392 Facial weakness following cerebral infarction; F02.80 Dementia in other diseases classified elsewhere, unspecified severity, without behavioral disturbance, psychotic disturbance, mood disturbance, and anxiety; G30.9 Alzheimer's disease, unspecified; I10 Essential (primary) hypertension; Z88.5 Allergy status to narcotic agent; Z88.8 Allergy status to other drugs, medicaments and biological substances; R26.9 Unspecified abnormalities of gait and mobility; Z87.01 Personal history of pneumonia (recurrent)
CPT/HCPCS: 36415; 70030-TC; 71045; 83735; 84100; 84443; 85025; 87086; 92507; 92523; 97110; 97112; 97116; 97165; 97530; 97535; A4663; J1815; J7030